=== PATIENT | male | born 1955 | race Caucasian/White ===

== ENCOUNTER → 2017-03-06 | Outpatient (CLI) | payer OTHER ==
[~2017-03-06] MED LIST: ASPIRIN PO; BAYER ASPIRIN325 M1 PO; CRESTOR PO; FERROUS GLUCON324 MG PO; FERROUS SU324 ( 65 ) PO; HYDROCODON-ACE1 EAC5 PO; IRON TABLETS1 TAB PO; LIPITOR40 MG PO; LYRICA PO; MELOXICAM15 MG PO; NEURONTIN600 MG PO; NIASPAN1000 MG PO; PANTOPRAZOLE SO40 MG; PANTOPRAZOLE SO40 MG PO; PRILOSEC PO; PRILOSEC20 M1 PO; PRILOSEC20 MG PO; PRINIVIL10 MG PO; PRINIVIL20 M1 PO; SIMVASTATIN40 MG PO; VICODIN ES 7.51 EACH PO; VICODIN PO
--- NOTE | ~2017-03-06 | US85 ---
[facility] A Service of [facility] & [facility] RADIOLOGY TEXT RESULTS PATIENT: TASNEEM LU LOCATION: [facility] : 55 UNIT #: [id number] AGE: [address]: Dimitri Harrell MD SEX: M ORDER DR: [id number] [facility] [address] [place], [place] [address] [id number] O MR#: [id number] Acc #: [id number] NAME: TASNEEM LU : 1955 SEX: M STUDY DATE/TIME: 03/06/2017 10:46 UNIT: [facility] ROOM: STUDY DESCRIPTION: [employer] Attending Physician: Dimitri Harrell M.D. Referring Physician: Dimitri Harrell M.D. Ordering Physician: Dimitri Harrell M.D. Primary Care Physician: Maricarmen Aragon M.D. MEDICAL IMAGING REPORT This report is preliminary unless electronic signature is present EXAM Left leg vein Doppler 03/06/2017 at 1046 hours INDICATION Left leg pain for 3 weeks. Prior history of DVT and hypertension and hyperlipidemia. FINDINGS Goodman-scale, color flow, and spectral Doppler waveform analysis is performed of the left lower extremity venous system. All venous structures demonstrate normal compressibility and color flow. No superficial or deep venous thrombosis is seen. There is some edema in the soft tissues. There is a Virgen's cyst measuring about 4.7 x 2.1 x 3.2 cm. IMPRESSION No superficial or deep venous thrombosis identified. There is some soft tissue edema noted, and there is a Virgen's cyst behind the knee. Dictated by... Kimo Johnson Jr., M.D. THIS IS AN ELECTRONICALLY VERIFIED REPORT Kimo Johnson Jr., M.D. at 03/07/2017 8:50 PM JACEK/radha TD: 03/07/2017 11:39 JOB #: [id number] MEDICAL IMAGING REPORT Page 1 of 1 COPY
== END | disposition home or self-care (01) ==
LOC: CGUS 09:53
DX: M79.89 Other specified soft tissue disorders (principal); M79.605 Pain in left leg; M71.22 Synovial cyst of popliteal space [Baker], left knee; R60.0 Localized edema
CPT/HCPCS: 93971

== ENCOUNTER → 2017-04-01 | Day surgery (SDC) | payer OTHER ==
--- NOTE | ~2017-04-01 | OR ---
Unit #: [id number] #: [id number] Patient: TASNEEM LU [id number] [address] [place], [place] [address] [id number] O MR#: [id number] NAME: TASNEEM LU ROOM: Date of Procedure: 04/01/2017 Admission Date: 04/01/2017 Surgeon: Darrel Sun M.D. : 1955 Attending Physician: Darrel Sun M.D. Primary Care Physician: Maricarmen Aragon M.D. OPERATIVE REPORT PRIMARY CARE PHYSICIAN Maricarmen Aragon M.D. PREOPERATIVE DIAGNOSES The patient has longstanding history of Lopez esophagus and hiatus hernia. He does get breakthrough symptoms of acid reflux while on once a day Protonix. He has come for elective upper endoscopy and surveillance for Lopez esophagus. PROCEDURES PERFORMED Upper gastrointestinal endoscopy and biopsy. POSTOPERATIVE DIAGNOSES 1. The patient had a long segment of Lopez esophagus extending from 27 to 32 cm from the incisors. Four-quadrant biopsies were obtained at 28 and 32 cm, and sent for histology to look for any evidence of dysplasia. 2. Large hiatus hernia. 3. Rest of the examination up to third part of duodenum was normal. RECOMMENDATIONS The patient is advised to increase the dose of Protonix to 40 mg p.o. b.i.d. He will be followed up in the office in 3 to 4 months' time. SEDATION USED MAC. DESCRIPTION OF PROCEDURE Following detailed explanation of potential risks and complications of an upper endoscopy, namely perforation, bleeding, and complications related to sedation, the patient was brought to GI lab and laid in the left lateral decubitus position. Lubricated tip of the Olympus video upper endoscope was passed through the bite block into the proximal esophagus under direct vision. The entire esophageal mucosa was examined and the patient was noted to have classic changes of Lopez esophagus from 27 to 32 cm from the incisors. In addition, a large hiatus hernia was noted. The scope was then advanced into the gastric cavity and the latter was insufflated. Mucosa of the fundus, body, and antrum was examined and appeared unremarkable. Pylorus was intubated with visualization of the normal duodenal bulb and second and third part of the duodenum. Upon withdrawal and retroflexion; incisura, cardia, and greater curve was examined no additional findings were noted. The scope was then withdrawn in the distal esophagus. Four-quadrant biopsies were obtained from the Unit #: [id number] #: [id number] Patient: TASNEEM LU Lopez segment from the distal esophagus at 32 and 28 cm from the incisors. These were sent for histology to for any evidence of dysplasia. The scope was then withdrawn and the patient returned to the recovery area. He tolerated the procedure without any postprocedure complications. Dictated by... Dot Rowley/jaclyn TD: 04/01/2017 11:37 JOB #: [id number] OPERATIVE REPORT Page 1 of 1 X Darrel Sun MD X PROCEDURE OPERATIVE NOTE
== END | disposition home or self-care (01) ==
LOC: COPS 08:13
DX: K22.70 Barrett's esophagus without dysplasia (principal); K44.9 Diaphragmatic hernia without obstruction or gangrene; K21.9 Gastro-esophageal reflux disease without esophagitis
CPT/HCPCS: 88305